=== PATIENT | male | born 1980 | race Caucasian/White ===

== ENCOUNTER → 2016-06-17 | Outpatient (CLI) | payer OTHER | END | disposition home or self-care (01) | LOC: C.LABSPEC 11:06 | PROVIDERS: ATTEND Orthopaedic Surgery | DX: M00.9 Pyogenic arthritis, unspecified (principal) ==

== ENCOUNTER → 2016-11-04 | Outpatient (CLI) | payer OTHER | END | disposition home or self-care (01) | LOC: C.LABSPEC 18:11 | PROVIDERS: ATTEND Orthopaedic Surgery | DX: L02.511 Cutaneous abscess of right hand (principal) ==